=== PATIENT | male | born 1955 | race Caucasian/White ===

== ENCOUNTER 2018-05-28 16:44 | Observation (INO) | payer MEDICARE ==
[2018-05-28] MEDS ORDERED: SODIUM CHLORIDE 0.9% 1,000 ML IV STA (17:42)
[2018-05-28] MEDS ORDERED: ASPIRIN 81 MG PO STA (17:43)
--- NOTE | 2018-05-28 17:47 | ED ---
Neuro HPI - General Chief Complaint: Neuro Symptoms/Deficit Stated Complaint: poss TIA Time Seen by Provider: 05/28/18 17:18 Source: patient, RN notes reviewed Mode of arrival: ambulatory Limitations: no limitations - History of Present Illness Is the patient presenting with stroke symptoms?: No Initial Comments: Is a 63-year-old male with a history of high cholesterol and a smoker who states he had the onset last evening of midsternal chest pain lasted about 15 minutes but seemed to radiate to his head. He states he woke up this morning with a fuzzy lightheaded feeling and a discomfort to his frontal area extending over the mid parietal scalp. He went to his doctor's office today and EKG then was apparently okay his doctor did state that she thought the left carotid appeared to be normal compared to the right on auscultation. Patient also told his physician that he can see in the ears heartbeat in his left ear. He's had no focal deficits no blurry vision no fevers chills nausea vomiting sweats or other symptoms at this time. Per the patient he was informed by his physician at there was concern about possible TIA. No other findings factors. - Related Data Home Medications: Home Medications Medication Instructions Recorded Confirmed Cyclobenzaprine [Flexeril] 10 mg PO DAILY PRN 05/28/18 05/28/18 DULoxetine HCL [Cymbalta] 60 mg PO DAILY 05/28/18 05/28/18 Gabapentin 600 mg PO TID 05/28/18 05/28/18 Ibuprofen [Motrin] 800 mg PO DAILY PRN 05/28/18 05/28/18 Allergies/Adverse Reactions: Allergies Allergy/AdvReac Type Severity Reaction Status Date / Time No Known Allergies Allergy Verified 05/28/18 16:57 Review of Systems ROS Statement: Those systems with pertinent positive or pertinent negative responses have been documented in the HPI. ROS Other: All systems not noted in ROS Statement are negative. General Exam - General Exam Comments Initial Comments: This is a well-developed well-nourished awake alert oriented times 3 male Limitations: no limitations General appearance: alert, in no apparent distress Head exam: Present: atraumatic, normocephalic, normal inspection Eye exam: Present: normal appearance, PERRL, EOMI. Absent: scleral icterus, conjunctival injection, periorbital swelling ENT exam: Present: normal exam, mucous membranes moist Neck exam: Present: normal inspection, full ROM, other (No stridor JVD or bruits ). Absent: tenderness, meningismus, lymphadenopathy Respiratory exam: Present: normal lung sounds bilaterally. Absent: respiratory distress, wheezes, rales, rhonchi, stridor Cardiovascular Exam: Present: regular rate, normal rhythm, normal heart sounds. Absent: systolic murmur, diastolic murmur, rubs, gallop, clicks GI/Abdominal exam: Present: soft, normal bowel sounds. Absent: distended, tenderness, guarding, rebound, rigid, bruit, pulsatile mass Extremities exam: Present: normal inspection, full ROM, normal capillary refill. Absent: tenderness, pedal edema, joint swelling, calf tenderness Back exam: Present: normal inspection Neurological exam: Present: alert, oriented X3, CN II-XII intact Psychiatric exam: Present: normal affect, normal mood Skin exam: Present: warm, dry, intact, normal color. Absent: rash Stroke MDM - Lab Data Result diagrams: 05/28/18 17:16 05/28/18 17:16 Lab Results 05/28/18 05/28/18 05/28/18 Range/Units 17:16 17:16 17:16 WBC 7.8 (3.8-10.6) k/uL RBC 5.33 (4.30-5.90) m/uL Hgb 15.9 (13.0-17.5) gm/dL Hct 48.9 (39.0-53.0) % MCV 91.7 (80.0-100.0) fL MCH 29.9 (25.0-35.0) pg MCHC 32.6 (31.0-37.0) g/dL RDW 13.5 (11.5-15.5) % Plt Count 285 (150-450) k/uL Neutrophils % 56 % Lymphocytes % 28 % Monocytes % 8 % Eosinophils % 4 % Basophils % 1 % Neutrophils # 4.4 (1.3-7.7) k/uL Lymphocytes # 2.1 (1.0-4.8) k/uL Monocytes # 0.6 (0-1.0) k/uL Eosinophils # 0.3 (0-0.7) k/uL Basophils # 0.1 (0-0.2) k/uL PT 9.7 (9.0-12.0) sec INR 0.9 (<1.2) APTT 26.1 (22.0-30.0) sec D-Dimer 0.49 (<0.60) mg/L FEU Sodium 138 (137-145) mmol/L Potassium 4.7 (3.5-5.1) mmol/L Chloride 107 (98-107) mmol/L Carbon Dioxide 22 (22-30) mmol/L Anion Gap 9 mmol/L BUN 18 (9-20) mg/dL Creatinine 0.70 (0.66-1.25) mg/dL Est GFR (CKD-EPI)AfAm >90 (>60 ml/min/1.73 sqM) Est GFR (CKD-EPI)NonAf >90 (>60 ml/min/1.73 sqM) Glucose 96 (74-99) mg/dL Calcium 9.4 (8.4-10.2) mg/dL Magnesium 2.2 (1.6-2.3) mg/dL Total Bilirubin 0.6 (0.2-1.3) mg/dL AST 36 (17-59) U/L ALT 43 (21-72) U/L Alkaline Phosphatase 87 (38-126) U/L Total Creatine Kinase (55-170) U/L CK-MB (CK-2) (0.0-2.4) ng/mL CK-MB (CK-2) Rel Index Troponin I (0.000-0.034) ng/mL Total Protein 7.1 (6.3-8.2) g/dL Albumin 4.2 (3.5-5.0) g/dL 05/28/18 Range/Units 17:16 WBC (3.8-10.6) k/uL RBC (4.30-5.90) m/uL Hgb (13.0-17.5) gm/dL Hct (39.0-53.0) % MCV (80.0-100.0) fL MCH (25.0-35.0) pg MCHC (31.0-37.0) g/dL RDW (11.5-15.5) % Plt Count (150-450) k/uL Neutrophils % % Lymphocytes % % Monocytes % % Eosinophils % % Basophils % % Neutrophils # (1.3-7.7) k/uL Lymphocytes # (1.0-4.8) k/uL Monocytes # (0-1.0) k/uL Eosinophils # (0-0.7) k/uL Basophils # (0-0.2) k/uL PT (9.0-12.0) sec INR (<1.2) APTT (22.0-30.0) sec D-Dimer (<0.60) mg/L FEU Sodium (137-145) mmol/L Potassium (3.5-5.1) mmol/L Chloride (98-107) mmol/L Carbon Dioxide (22-30) mmol/L Anion Gap mmol/L BUN (9-20) mg/dL Creatinine (0.66-1.25) mg/dL Est GFR (CKD-EPI)AfAm (>60 ml/min/1.73 sqM) Est GFR (CKD-EPI)NonAf (>60 ml/min/1.73 sqM) Glucose (74-99) mg/dL Calcium (8.4-10.2) mg/dL Magnesium (1.6-2.3) mg/dL Total Bilirubin (0.2-1.3) mg/dL AST (17-59) U/L ALT (21-72) U/L Alkaline Phosphatase (38-126) U/L Total Creatine Kinase 83 (55-170) U/L CK-MB (CK-2) 0.4 (0.0-2.4) ng/mL CK-MB (CK-2) Rel Index 0.5 Troponin I <0.012 (0.000-0.034) ng/mL Total Protein (6.3-8.2) g/dL Albumin (3.5-5.0) g/dL - NIH Stroke Scale 1a. Level of Consciousness: (0) alert 1b. LOC Questions: (0) answers correctly 1c. LOC Commands: (0) performs tasks correctly 2. Best Gaze: (0) normal 3. Visual: (0) no visual loss 4. Facial Palsy: (0) normal symmetrical movement 5a. Motor Arm Left: (0) no drift 5b. Motor Arm Right: (0) no drift 6a. Motor Leg Left: (0) no drift 6b. Motor Leg Right: (0) no drift 7. Limb Ataxia: (0) absent 8. Sensory: (0) normal 9. Best Language: (0) no aphasia 10. Dysarthria: (0) normal 11. Extinction/Inattention: (0) no abnormality - Medical Decision Making I did a long discussion with patient regarding findings patient did have presentation chest pain with atypical radiation toward the head. He is a smoker. Patient does have risk factors he will be admitted for evaluation of cardiac disease. I did discuss the case with him and his also with Dr. Scanlon. - EKG Data -: EKG Interpreted by Me EKG shows normal: sinus rhythm (Sinus rhythm rate is 76. Interval 138 QRS duration 88 QT/QTC 400/450 normal. EKG this does correlate with one submitted from the office which shows no change in morphology.) Past Medical History Past Medical History: Hyperlipidemia Additional Past Medical History / Comment(s): back injury, neuropathy History of Any Multi-Drug Resistant Organisms: None Reported Additional Past Surgical History / Comment(s): throat surgery Past Psychological History: No Psychological Hx Reported Smoking Status: Current every day smoker Past Alcohol Use History: None Reported Past Drug Use History: None Reported Course Vital Signs 05/28/18 05/28/18 05/28/18 16:58 18:30 19:49 Temperature 98.1 F Pulse Rate 78 74 Respiratory 18 16 Rate Blood Pressure 150/95 161/108 158/104 O2 Sat by Pulse 97 99 Oximetry Disposition Clinical Impression: Chest pain, Unstable angina Disposition: ADMITTED IP TO THIS [facility] Condition: Stable Referrals: Gagandeep Sanz MD [Primary Care Provider] - 1-2 days
[2018-05-28 18:04] LABS: Basophils # (A) 0.1 k/uL (0-0.2); Basophils % (A) 1 %; Eosinophils # (A) 0.3 k/uL (0-0.7); Eosinophils % (A) 4 %; HCT 48.9 % (39.0-53.0); HGB 15.9 gm/dL (13.0-17.5); Lymphocytes # (A) 2.1 k/uL (1.0-4.8); Lymphocytes % (A) 28 %; MCH 29.9 pg (25.0-35.0); MCHC 32.6 g/dL (31.0-37.0); MCV 91.7 fL (80.0-100.0); Mean Platelet Volume 6.7; Monocytes # (A) 0.6 k/uL (0-1.0); Monocytes % (A) 8 %; Neutrophils # (A) 4.4 k/uL (1.3-7.7); Neutrophils % (A) 56 %; Platelet Count 285 k/uL (150-450); RBC 5.33 m/uL (4.30-5.90); RDW 13.5 % (11.5-15.5); WBC 7.8 k/uL (3.8-10.6)
[2018-05-28 18:11] LABS: ALT 43 U/L (21-72); AST 36 U/L (17-59); Albumin 4.2 g/dL (3.5-5.0); Alkaline Phosphatase 87 U/L (38-126); Anion Gap 9 mmol/L; Blood Urea Nitrogen 18 mg/dL (9-20); Calcium 9.4 mg/dL (8.4-10.2); Carbon Dioxide 22 mmol/L (22-30); Chloride 107 mmol/L (98-107); Glucose 96 mg/dL (74-99); Magnesium 2.2 mg/dL (1.6-2.3); Sodium 138 mmol/L (137-145); Total Bilirubin 0.6 mg/dL (0.2-1.3); Total Protein 7.1 g/dL (6.3-8.2)
[2018-05-28 18:13] LABS: Potassium 4.7 mmol/L (3.5-5.1)
[2018-05-28 18:19] LABS: D-Dimer 0.49 mg/L FEU (<0.60); INR 0.9 (<1.2); Partial Thromboplastin Time 26.1 sec (22.0-30.0); Prothrombin Time 9.7 sec (9.0-12.0)
[2018-05-28 18:32] LABS: Creatine Kinase 83 U/L (55-170)
[2018-05-28 18:35] LABS: Creatine Kinase MB 0.4 ng/mL (0.0-2.4); Troponin I <0.012 ng/mL (0.000-0.034)
--- NOTE | 2018-05-28 18:53 | XR ---
EXAMINATION TYPE: XR chest 2V DATE OF EXAM: 05/28/2018 COMPARISON: NONE HISTORY: Headache and altered mental status today. Weakness. History of tobacco use. TECHNIQUE: Frontal and lateral views of the chest are obtained. FINDINGS: Mild reticular interstitial prominence bilaterally is seen diffusely favoring chronic paren chymal fibrosis. There is no focal air space opacity, pleural effusion, or pneumothorax seen. The c ardiac silhouette size is within normal limits. The osseous structures are intact. IMPRESSION: Chronic parenchymal changes without acute pulmonary process.
--- NOTE | 2018-05-28 19:05 | CT ---
EXAMINATION TYPE: CT brain wo con DATE OF EXAM: 05/28/2018 HISTORY: Headache and neck pain. CT DLP: 1018 mGycm. Automated Exposure Control for Dose Reduction was Utilized. TECHNIQUE: CT scan of the head is performed without contrast. COMPARISON: None. FINDINGS: There is no acute intracranial hemorrhage or midline shift identified. There is diffuse v entricular and sulcal prominence consistent with diffuse age-related cerebral atrophy. There is low- attenuation in the periventricular white matter consistent with chronic small vessel ischemic change. The globes are intact and the visualized sinuses are clear. IMPRESSION: No acute intracranial hemorrhage or midline shift. There is mild to minimal diffuse age -related cerebral atrophy and chronic small vessel ischemic change noted.
--- NOTE | 2018-05-28 19:17 | CT ---
EXAMINATION TYPE: CT angio head neck DATE OF EXAM: 05/28/2018 HISTORY: Headache and neck pain. Neurodeficits per order. COMPARISON: NONE CT DLP: 347.9 mGycm. Automated Exposure Control for Dose Reduction was Utilized. TECHNIQUE: CTA scan of the head and neck are performed with IV Contrast, patient injected with 65 mL of Isovue 370, axial images are obtained, coronal and sagittal reformatted images are reviewed. Thre e-D reconstructed images are created on an independent workstation and reviewed. FINDINGS: Carotid/Vascular Structures: There is minimal noncalcified peripheral plaque in aortic arch. There is normal three-vessel origin from the aortic arch. Visualized portion of subclavian artery show no sig nificant stenosis. Right common carotid artery shows normal origin from the right brachiocephalic art [place]. There is no significant plaque or stenosis in right common or internal carotid artery including at level of right carotid bulb. There is patent right external carotid artery without significant angelita que or stenosis. There is no significant plaque or stenosis in left common or internal carotid arteries including at l evel of left carotid bulb. There is patent left external carotid artery without significant plaque or stenosis. There is codominant vertebral basilar system. Vertebral arteries are patent to basilar junction. Ther e is no significant focal stenosis or aneurysmal change in the posterior circulation. There is patent left posterior communicating artery. There is hypoplastic right posterior communicating artery. Images of the anterior circulation show hypoplastic anterior communicating artery. No significant foc al stenosis or aneurysmal change is identified. Other: There is levoconvex scoliosis centered in the upper to midthoracic spine. There is mild emphysematous change with mild to moderate biapical pleural/parenchymal scarring. IMPRESSION: 1. No significant stenosis in common or internal carotid arteries bilaterally. 2. No aneurysmal change at level of the [place].
[2018-05-28] MEDS ORDERED: HEPARIN SODIUM,PORCINE 5,000 UNIT/ML 1 ML VIAL IV ONE (22:08)
[2018-05-28] MEDS ORDERED: NITROGLYCERIN SL TABS 0.4 MG TAB SUBLINGUAL PRN (22:08)
[2018-05-28] MEDS ORDERED: CYCLOBENZAPRINE 10 MG TAB PO PRN (22:10)
[2018-05-28] MEDS ORDERED: SODIUM CHLORIDE 0.9% 1,000 ML IV SCH (22:15)
[2018-05-28] MEDS ORDERED: HEPARIN SOD,PORK IN 0.45% NACL 25,000 UNIT in 0.45% NACL 1 250ML.BAG IV SCH (22:15)
[2018-05-28] MEDS ORDERED: IBUPROFEN 800 MG TAB PO PRN (23:00)
[2018-05-28 23:24] VITALS: RESP 18; BMI 26.2
[2018-05-29] MEDS: NITROGLYCERIN OINT 1 INCH/GM PACKET TOPICAL SCH ×2 (00:31→06:06)
[2018-05-29] MEDS: GABAPENTIN 300 MG CAP PO SCH ×2 (00:31→08:33)
[2018-05-29 06:52] LABS: Cholesterol 213 mg/dL (<200); HDL Cholesterol 39 mg/dL (40-60); LDL Cholesterol,Calculated 162 mg/dL (0-99); Triglycerides 62 mg/dL (<150)
[2018-05-29] MEDS ORDERED: HEPARIN SODIUM,PORCINE 5,000 UNIT/ML 1 ML VIAL IV PRN (06:56)
--- NOTE | 2018-05-29 08:13 | P.CRDCN ---
History of Present Illness Consult date: 05/29/18 Requesting physician: Cleveland Scanlon Consult reason: chest pain Chief complaint: Chest pain, lightheadedness History of present illness: This is a 63-year-old gentleman with history of hyperlipidemia, nicotine dependence, he states that the night before last he woke up from sleep with a midsternal chest discomfort that radiated up into his throat and jaw area , and then up into his head. He states that the symptoms lasted approximately 15 minutes in duration and subsided. The following day the patient states that he had a headache, and felt mildly lightheaded, he states that his walk was wobbly inferiorly unsteady. He went to see his primary care doctor who performed an EKG in the office which patient was told was normal, he then was advised to come to the hospital rule out the possibility of a TIA. Chest x-ray on admission showed chronic parenchymal changes without any acute pulmonary process. CT angiography did not reveal any significant stenosis in the common or internal carotid arteries bilaterally. No aneurysmal change in the [place]. CAT scan of the brain did not reveal any acute intracranial hemorrhage or midline shift. Blood pressure on arrival here 150/90, heart rate in the 70s, 97% on room air. Blood pressure this morning 125/78 with a heart rate in the 70s, 94% on room air. Laboratory data was reviewed, white blood cell count 7.8, hemoglobin 15.9, platelet count 285. D-dimer was negative. Sodium 138, potassium 4.7, BUN 18 and creatinine 0.7, magnesium 2.2. Troponins were negative 3. Cholesterol 213, LDL 162, HDL 39 and triglycerides 16 examination, patient states that he feels back to himself, denies any dizziness or lightheadedness, no chest discomfort. Past Medical History Past Medical History: Hyperlipidemia Additional Past Medical History / Comment(s): back injury, neuropathy History of Any Multi-Drug Resistant Organisms: None Reported Additional Past Surgical History / Comment(s): throat surgery Past Anesthesia/Blood Transfusion Reactions: No Reported Reaction Past Psychological History: No Psychological Hx Reported Smoking Status: Current every day smoker Past Alcohol Use History: None Reported Past Drug Use History: None Reported - Past Family History Mother Family Medical History: Diabetes Mellitus Medications and Allergies Home Medications Medication Instructions Recorded Confirmed Type Cyclobenzaprine [Flexeril] 10 mg PO DAILY PRN 03/04/19 03/04/19 History DULoxetine HCL [Cymbalta] 60 mg PO DAILY 05/28/18 05/28/18 History Gabapentin 600 mg PO TID 05/28/18 05/28/18 History Ibuprofen [Motrin] 800 mg PO DAILY PRN 05/28/18 05/28/18 History Allergies Allergy/AdvReac Type Severity Reaction Status Date / Time No Known Allergies Allergy Verified 05/28/18 16:57 Physical Exam Vitals: Vital Signs Temp Pulse Pulse Resp BP BP Pulse Ox 05/29/18 05:05 96.1 F L 79 18 125/78 94 L 05/29/18 00:18 96.4 F L 65 18 136/83 95 05/28/18 23:14 96.4 F L 65 18 136/83 95 05/28/18 22:59 76 16 145/98 98 05/28/18 22:00 68 14 146/93 95 05/28/18 21:00 64 13 149/83 95 05/28/18 20:00 73 24 158/104 95 05/28/18 19:49 74 16 158/104 99 05/28/18 19:00 72 20 161/108 95 05/28/18 18:30 161/108 05/28/18 16:58 98.1 F 78 18 150/95 97 Intake and Output 05/28/18 05/29/18 05/29/18 22:59 06:59 14:59 Intake Total 80.752 Balance 80.752 Intake: Intake, IV Titration 80.752 Amount Heparin Sod,Pork in 0.45% 80.752 NaCl 25,000 unit In 0.45 % NaCl 1 250ml.bag @ 11. 42 UNITS/KG/HR 9.99 mls/ hr IV .Q24H [facility] Rx#: [id number] Other: Voiding Method Toilet # Voids 1 Weight 87.543 kg 84.2 kg PHYSICAL EXAMINATION: GENERAL: 63-year-old gentleman in no acute distress at the time of my examination HEENT: Head is atraumatic, normocephalic. Pupils equal, round. Sclera anicteric. Conjunctiva are clear. Mucous membranes of the mouth are moist. Neck is supple. There is no elevated jugular venous pressure. No carotid bruit is heard. HEART EXAMINATION: Heart S1, S2 normal. No murmur or gallop heard. CHEST EXAMINATION: Lungs are clear to auscultation and precussion. No chest wall tenderness is noted on palpation or with deep breathing. ABDOMEN: Soft, nontender. Bowel sounds are heard. No organomegaly noted. EXTREMITIES: 2+ peripheral pulses with no evidence of peripheral edema and no calf tenderness noted. NEUROLOGIC patient is awake, alert and oriented 3 . . Results 05/28/18 17:16 05/28/18 17:16 Cardiac Enzymes 05/28/18 05/28/18 05/28/18 Range/Units 17:16 17:16 23:06 AST 36 (17-59) U/L CK-MB (CK-2) 0.4 (0.0-2.4) ng/mL Troponin I <0.012 <0.012 (0.000-0.034) ng/mL 05/29/18 Range/Units 06:08 AST (17-59) U/L CK-MB (CK-2) (0.0-2.4) ng/mL Troponin I <0.012 (0.000-0.034) ng/mL Coagulation 05/28/18 05/29/18 Range/Units 17:16 06:08 PT 9.7 (9.0-12.0) sec APTT 26.1 46.0 H (22.0-30.0) sec Lipids 05/29/18 Range/Units 06:08 Triglycerides 62 (<150) mg/dL Cholesterol 213 H (<200) mg/dL HDL Cholesterol 39 L (40-60) mg/dL CBC 05/28/18 Range/Units 17:16 WBC 7.8 (3.8-10.6) k/uL RBC 5.33 (4.30-5.90) m/uL Hgb 15.9 (13.0-17.5) gm/dL Hct 48.9 (39.0-53.0) % Plt Count 285 (150-450) k/uL Comprehensive Metabolic Panel 05/28/18 Range/Units 17:16 Sodium 138 (137-145) mmol/L Potassium 4.7 (3.5-5.1) mmol/L Chloride 107 (98-107) mmol/L Carbon Dioxide 22 (22-30) mmol/L BUN 18 (9-20) mg/dL Creatinine 0.70 (0.66-1.25) mg/dL Glucose 96 (74-99) mg/dL Calcium 9.4 (8.4-10.2) mg/dL AST 36 (17-59) U/L ALT 43 (21-72) U/L Alkaline Phosphatase 87 (38-126) U/L Total Protein 7.1 (6.3-8.2) g/dL Albumin 4.2 (3.5-5.0) g/dL Current Medications Generic Name Dose Route Start Last Admin Trade Name Freq PRN Reason Stop Dose Admin Aspirin 325 mg 05/29/18 09:00 Aspirin PO DAILY [facility] Atorvastatin Calcium 80 mg 05/29/18 21:00 Lipitor PO HS [facility] Cyclobenzaprine HCl 10 mg 05/28/18 22:10 Flexeril PO DAILY PRN Spasms Duloxetine HCl 60 mg 05/29/18 09:00 Cymbalta PO DAILY [facility] Gabapentin 600 mg 05/28/18 23:00 05/29/18 00:31 Neurontin PO 600 mg TID [facility] Administration Heparin Sodium (Porcine) 0 unit 05/29/18 06:56 05/29/18 07:04 Heparin IV 2,105 unit PER PROTOCOL PRN Administration Low PTT Protocol Heparin Sodium/Sodium Chloride 250 mls @ 9.99 mls/hr 05/28/18 22:15 05/29/18 06:57 25,000 unit/ Sodium Chloride IV 13.42 units/kg/hr .Q24H [facility] 11.74 mls/hr Titration Protocol 11.42 UNITS/KG/HR Sodium Chloride 1,000 mls @ 20 mls/hr 05/28/18 22:15 05/29/18 05:08 Saline 0.9% IV Not Given .Q24H [facility] Ibuprofen 800 mg 05/28/18 23:00 Motrin PO DAILY PRN Pain Nitroglycerin 1 inch 05/29/18 00:00 05/29/18 06:06 Nitro-Bid Oint TOPICAL 1 inch Q6HR [facility] Administration Nitroglycerin 0.4 mg 05/28/18 22:08 Nitrostat SUBLINGUAL Q5M PRN Chest Pain Intake and Output 05/28/18 05/29/18 05/29/18 22:59 06:59 14:59 Intake Total 80.752 Balance 80.752 Intake: Intake, IV Titration 80.752 Amount Heparin Sod,Pork in 0.45% 80.752 NaCl 25,000 unit In 0.45 % NaCl 1 250ml.bag @ 11. 42 UNITS/KG/HR 9.99 mls/ hr IV .Q24H [facility] Rx#: [id number] Other: Voiding Method Toilet # Voids 1 Weight 87.543 kg 84.2 kg 05/28/18 17:16 05/28/18 17:16 EKG Interpretations (text) EKG shows a normal sinus rhythm with no acute changes. Assessment and Plan Plan: Assessment and plan #1 chest pain, atypical features for acute coronary syndrome. EKG shows normal sinus rhythm with no acute changes. Troponins are negative 3. D-dimer negative. #2 hyperlipidemia, patient states he used to be on cholesterol medications, these have been stopped because his cholesterol numbers have returned to normal according to him. #3 nicotine dependence Plan We will obtain an echocardiogram with Doppler study. We will also recommend the patient undergo stress testing. Neuro workup per primary. We'll start the patient on a statin, decrease his aspirin to 81 mg daily and discontinue his heparin. Discontinue Nitropaste. Further recommendations to follow. DNP note has been reviewed, I agree with a documented findings and plan of care. Patient was seen and examined.
[2018-05-29] MEDS ORDERED: DULoxetine HCL 60 MG CAPSULE.DR PO SCH (09:00)
[2018-05-29] MEDS ORDERED: ASPIRIN 325 MG TAB PO SCH (09:00)
--- NOTE | 2018-05-29 11:57 | ECHOF ---
Referral Reason:chest pain MEASUREMENTS -------- HEIGHT: 182.9 cm WEIGHT: 83.9 kg BP: RVIDd: 2.8 cm (< 3.3) IVSd: 1.3 cm (0.6 - 1.1) LVIDd: 4.2 cm (3.9 - 5.3) LVPWd: 1.3 cm (0.6 - 1.1) IVSs: 1.4 cm LVIDs: 3.4 cm LVPWs: 1.3 cm LA Diam: 3.1 cm (2.7 - 3.8) LAESV Index (A-L): 23.60 ml/m Ao Diam: 2.8 cm (2.0 - 3.7) AV Cusp: 2.0 cm (1.5 - 2.6) LA Diam: 3.3 cm (2.7 - 3.8) MV EXCURSION: 15.271 mm (> 18.000) MV EF SLOPE: 81 mm/s (70 - 150) EPSS: 0.9 cm MV E Tanvir: 0.57 m/s MV DecT: 252 ms MV A Tanvir: 0.81 m/s MV E/A Ratio: 0.71 RAP: 5.00 mmHg RVSP: 27.49 mmHg FINDINGS -------- Sinus rhythm. This was a technically good study. The left ventricular size is normal. There is mild concentric left ventricular hypertrophy. Overa ll left ventricular systolic function is normal with, an EF between 55 - 60 %. The right ventricle is normal in size. The left atrial size is normal. The right atrial size is normal. The aortic valve is trileaflet, and appears structurally normal. No aortic stenosis or regurgitation. The mitral valve is normal. Mild mitral regurgitation is present. Mild tricuspid regurgitation present. There is no evidence of pulmonary hypertension. The right v entricular systolic pressure, as measured by Doppler, is 27.49mmHg. There is no pulmonic regurgitation present. The aortic root size is normal. There is no pericardial effusion. CONCLUSIONS -------- 1. Sinus rhythm. 2. This was a technically good study. 3. The left ventricular size is normal. 4. There is mild concentric left ventricular hypertrophy. 5. Overall left ventricular systolic function is normal with, an EF between 55 - 60 %. 6. The left atrial size is normal. 7. The aortic valve is trileaflet, and appears structurally normal. No aortic stenosis or regurgitati on. 8. Mild mitral regurgitation is present. 9. Mild tricuspid regurgitation present. 10. There is no evidence of pulmonary hypertension. 11. There is no pulmonic regurgitation present. 12. The aortic root size is normal. 13. There is no pericardial effusion. CANVASSING MANAGER: Jessica Goldsmith RDCS
[2018-05-29 12:47] VITALS: BP 139/84; PULSE 73; TEMP 97.4
[2018-05-29] MEDS ORDERED: ATORVASTATIN 80 MG TAB PO SCH (21:00)
--- NOTE | 2018-05-29 21:16 | DS ---
DISCHARGE SUMMARY HISTORY PHYSICAL AND DISCHARGE SUMMARY: DATE OF ADMISSION: May 28, 2018. DATE OF DISCHARGE: May 29, 2018. FINAL DIAGNOSES: 1. Chest pain, anterior chest wall pain, could be musculoskeletal. 2. Chronic nicotine dependence, patient is a cigarette smoker. 3. Hyperlipidemia. 4. Bilateral idiopathic lower extremity neuropathy. HOSPITAL COURSE: This patient presented with chest pain, that is present more in the center of the chest, started yesterday. It was sharp and became more dull and it was present on and off for the day. There was no perspiration. No dizziness. No lightheadedness. The patient has been feeling tired for a few days. The pain did go to the shoulder. Decided to come in to rule out a cardiac cause. No prior cardiac history. The patient is a smoker. REVIEW OF SYSTEMS: CONSTITUTIONAL: Tired. HEENT: None. RESPIRATORY: As above. CARDIOVASCULAR: As above. GASTROINTESTINAL: None. GENITOURINARY: None. MUSCULOSKELETAL: Some chronic low back pain. DERMATOLOGICAL, HEMATOLOGIC, LYMPHATIC: none. PSYCHIATRY none. NEUROLOGICAL: Numbness in lower extremity. PAST MEDICAL HISTORY: Hyperlipidemia, lower back injury, peripheral neuropathy. PAST SURGICAL HISTORY: Throat surgery. SOCIAL HISTORY: The patient is a smoker, 1/2 a pack a day. Is on disability. . 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 FAMILY HISTORY: Diabetes. MEDICATIONS: Home medications: 1. Motrin 800 mg p.r.n. 2. Neurontin 600 mg t.i.d. 3. Cymbalta 60 mg a day. 4. Flexeril 10 mg daily p.r.n. ALLERGIES: None. PHYSICAL EXAMINATION: VITAL SIGNS: Temperature 97.4, pulse 73, respiratory 18, blood pressure 138/84, pulse ox 95% on room air. GENERAL APPEARANCE: Average built, sitting up comfortable. EYES: Pupils are equal. Conjunctivae normal. HEENT: External appearance of nose and ears normal. Oral cavity normal. NECK: JVD not raised. Mass not palpable. RESPIRATORY: Effort normal. LUNGS: Fair air entry. CARDIOVASCULAR: 1st and 2nd sounds normal. No edema. ABDOMEN: Soft, nontender. Liver and spleen not palpable. LYMPHATICS: No lymph nodes palpable in the neck and axilla. PSYCHIATRY: Alert and oriented x3. Mood and affect normal. NEUROLOGICAL: Pupils equal. Cranial nerves grossly intact. Power and sensation grossly intact. INVESTIGATIONS: White count 7.8, hemoglobin 15.9, potassium 4.7. Troponin x3 negative. LDL 162. EKG tracing personally reviewed by me shows normal sinus rhythm. Chest x-ray film personally reviewed by me shows slightly prominent pulmonary artery, some flattening of the diaphragm. 2D echocardiogram EF 55-60 percent. Stress echo as reported by Cardiology was negative. A CT scan of the brain nil acute. CT angio of the head and neck, no significant stenosis. PLAN: Cardiology was consulted who did a stress EKG that was reported to be negative. Will add to the discharge medications baby aspirin and Lipitor 20 mg a day. Care was discussed at length with the patient and the . Smoking cessation counseling. This was done with the patient at length. Told to use an [id number] nicotine patch. More than 3 minutes was spent on this aspect of the case. CONSULTATION: Dr. Gilbert from Cardiology. FOLLOWUP: Follow up with Dr. Sanz in June 04, 2018. Follow up with Dr. Gilbert on June 26, 2018. MMODL / IJN: [id number] /
--- NOTE | 2018-05-30 20:47 | ECHOS ---
STRESS ECHOCARDIOGRAM INDICATION: Chest pain. MEDICATIONS: BASELINE HEART RATE: 71 BASELINE BLOOD PRESSURE: 139/75 MAXIMUM HEART RATE: 143 MAXIMUM BLOOD PRESSURE: 191/83 85% MPHR: 135 100% MPHR: 159 METS: 11.1 MAXIMUM STAGE REACHED: 4 TOTAL EXERCISE TIME: 9:30 CLINICAL INFORMATION: STRESS DATA: Pre-testing physical examination showed a heart rate of 71, pressure 129/75 mmHg. Baseline EKG showed sinus mechanism. The patient exercised on the treadmill according to Jeffy protocol for a total of 9 minutes and achieved 11.1 METS with max heart rate of 143, which is about 90% of maximum predicted heart rate. Maximum blood pressure was 191/83 mmHg. Clinically the patient did not have any symptoms of chest pain or discomfort and the EKG did not show any significant ST or T- wave abnormalities concerning for ischemia. ECHOCARDIOGRAM IMAGES: Echocardiogram images from long axis view, parasternal short axis view, apical 4-chamber and apical 2-chamber view were obtained as the baseline images, at the peak of the heart rate as well as on recovery. The echocardiogram images showed good augmentation in the left ventricular systolic function without any evidence of wall motion abnormalities concerning for ischemia. CONCLUSION: 1. Good exercise tolerance. 2. Normal EKG in response to exercise. 3. Normal echocardiogram in response to exercise. 4. Essentially normal stress echocardiogram. MMODL / IJN: [id number] /
== END 2018-05-29 16:39 | disposition home or self-care (01) ==
LOC: EC 16:44 → 3SCARD 22:08
PROVIDERS: ADMIT Hospitalist; ATTEND Hospitalist
DX: R07.89 Other chest pain (principal); R51 Headache; F17.210 Nicotine dependence, cigarettes, uncomplicated; R42 Dizziness and giddiness; E78.5 Hyperlipidemia, unspecified; G62.9 Polyneuropathy, unspecified; E78.00 Pure hypercholesterolemia, unspecified; G89.29 Other chronic pain; M54.5 Low back pain; G60.9 Hereditary and idiopathic neuropathy, unspecified; Z79.899 Other long term (current) drug therapy; Z79.1 Long term (current) use of non-steroidal anti-inflammatories (NSAID); Z87.828 Personal history of other (healed) physical injury and trauma; Z83.3 Family history of diabetes mellitus
CPT/HCPCS: 96376 ×2; 96366 ×2; 96361; 96365; 99285; 36415; 93005; 93306; 93351; 85379; 80061; 80053; 82550; 82553; 83735; 84484 ×2; 85025; 85610; 85730 ×2; 71046; 70496; 70450; 70498; G0378 ×2; J1644 ×3; Q9967